=== PATIENT | female | born 1960 | race Caucasian/White ===

== ENCOUNTER 2018-09-19 11:20 | Outpatient (CLI) | payer OTHER | END 2018-09-19 11:30 | disposition home or self-care (01) | LOC: SONOGRAMA 11:20 | DX: M05.79 Rheumatoid arthritis with rheumatoid factor of multiple sites without organ or systems involvement (principal); M19.041 Primary osteoarthritis, right hand; M19.042 Primary osteoarthritis, left hand; M19.031 Primary osteoarthritis, right wrist ==